=== PATIENT | male | born 1975 | race Asian ===

== ENCOUNTER 2018-08-07 14:09 | Emergency (ER) | payer OTHER ==
[~2018-08-07] VITALS: Ht 188 cm; Wt 77.1 kg
[2018-08-07 14:43] LABS: PLATELET COUNT 133 K/uL (142-355)
[2018-08-07 14:54] LABS: POTASSIUM 4.2 mmol/L (3.6-5.2); SODIUM 138 mmol/L (136-145)
[2018-08-07 16:45] LABS: PARTIAL THROMBOPLASTIN TIME 24.5 SECONDS (24.5-33.6)
[2018-08-07 18:25] VITALS: BP 128/76; TEMP 98
== END 2018-08-07 18:25 | disposition short-term general hospital (02) ==
LOC: ED 14:09
PROVIDERS: Family Medicine
DX: I20.0 Unstable angina (principal)
CPT/HCPCS: 36415; 80053; 80307; 81000; 84484; 85027; 85610; 85730; 93005; 96365; 99284; J1642; J1644

== ENCOUNTER 2018-08-07 18:32 | Outpatient (CLI) | payer OTHER | END 2018-08-07 19:00 | disposition short-term general hospital (02) | LOC: AMB 18:32 | DX: I20.0 Unstable angina (principal) | CPT/HCPCS: A0425; A0427 ==

== ENCOUNTER 2021-02-17 10:19 | Outpatient (CLI) | payer OTHER | END 2021-02-17 20:10 | disposition home or self-care (01) | LOC: INF 10:19 | PROVIDERS: ATTEND Internal Medicine | DX: Z23 Encounter for immunization (principal) | CPT/HCPCS: 96372 ==